=== PATIENT | female | born 1995 | race Hispanic/Latino ===

== ENCOUNTER 2017-12-28 23:17 | Emergency (ER) | payer MEDICAID ==
[2017-12-28 23:55] LABS: BASOPHILS % (AUTO) 0.7 % (0.0-5.0); HEMATOCRIT 42.7 % (36-48); LYMPHOCYTES % (AUTO) 22.9 % (21.0-51.0); MEAN CORPUSCULAR HEMOGLOBIN 29.8 pg (27.0-33.0); MEAN CORPUSCULAR HGB CONC 33.8 g/dL (32.0-36.0); MONOCYTES % (AUTO) 9.7 % (3.0-13.0); NEUTROPHILS % (AUTO) 65.7 % (40.0-77.0); PLATELET COUNT (AUTO) 358 K/uL (130-400); RED BLOOD CELL COUNT(AUTO) 4.86 MIL/uL (4.00-5.50); RED CELL DISTRIBUTION WIDTH 13.6 % (11.0-15.5); WHITE BLOOD COUNT (AUTO) 13.7 K/uL (4.8-10.8)
== END 2017-12-29 01:56 | disposition home or self-care (01) ==
LOC: EDH 23:17
DX: O20.0 Threatened abortion (principal); Z3A.10 10 weeks gestation of pregnancy
CPT/HCPCS: 36415; 76801; 85025; 86850; 86900; 86901

== ENCOUNTER 2018-01-05 06:03 | Day surgery (SDC) | payer MEDICAID ==
[2018-01-04 13:00] VITALS: BP 109/69
[2018-01-04 13:08] LABS: BASOPHILS % (AUTO) 0.3 % (0.0-5.0); EOSINOPHILS % (AUTO) 0.6 % (0.0-8.0); HEMATOCRIT 42.9 % (36-48); LYMPHOCYTES % (AUTO) 15.6 % (21.0-51.0); MEAN CORPUSCULAR HEMOGLOBIN 30.3 pg (27.0-33.0); MEAN CORPUSCULAR HGB CONC 34.7 g/dL (32.0-36.0); MEAN CORPUSCULAR VOLUME 87.3 fL (80-100); MONOCYTES % (AUTO) 4.4 % (3.0-13.0); NEUTROPHILS % (AUTO) 79.1 % (40.0-77.0); PLATELET COUNT (AUTO) 362 K/uL (130-400); RED BLOOD CELL COUNT(AUTO) 4.91 MIL/uL (4.00-5.50); RED CELL DISTRIBUTION WIDTH 13.6 % (11.0-15.5); WHITE BLOOD COUNT (AUTO) 11.3 K/uL (4.8-10.8)
[~2018-01-05] VITALS: Ht 162.6 cm; Wt 70.9 kg
[2018-01-05 06:19] VITALS: BP 124/66
[2018-01-05] MEDS: LACTATED RINGERS 1000ML 1,000 ML IV ONE (06:48)
[2018-01-05] MEDS ORDERED: LIDOCAINE PF 2% 5ML ABBOJECT ONE (07:53)
[2018-01-05] MEDS ORDERED: ONDANSETRON HCL 4 MG/2 ML VIAL ONE (07:53)
[2018-01-05] MEDS ORDERED: DEXAMETHASONE SOD PHOSPHATE 10MG/ML 1ML VIAL ONE (07:53)
[2018-01-05] MEDS ORDERED: GLYCOPYRROLATE 0.2 MG/ML 5 ML VIAL ONE (07:53)
[2018-01-05] MEDS ORDERED: MIDAZOLAM HCL 1 MG/ML 2ML VIAL ONE (07:54)
[2018-01-05] MEDS ORDERED: PROPOFOL 10 MG/ML 20ML VIAL IV ONE (07:54)
[2018-01-05] MEDS ORDERED: FENTANYL CITRATE PF 50 MCG/1 ML 2ML VIAL ONE (07:55)
[2018-01-05] MEDS ORDERED: OXYTOCIN 10 UNIT/1ML 10ML VIAL ONE (08:19)
[2018-01-05 09:30] VITALS: BP 111/65
[2018-01-05 09:45] VITALS: BP 112/73
[2018-01-05 10:00] VITALS: BP 124/64
== END 2018-01-05 10:17 | disposition home or self-care (01) ==
LOC: DAH 06:03
PROVIDERS: ATTEND Obstetrics & Gynecology
DX: O03.4 Incomplete spontaneous abortion without complication (principal)
CPT/HCPCS: 36415; 59812; 85025; 86850; 86900; 86901; 88304; A4510; A4600; A4606; J1100; J2001; J2250; J2405; J2590; J2704; J3010; J3490; J7120 ×2

== ENCOUNTER 2020-06-05 10:40 | Emergency (ER) | payer MEDICAID, OTHER ==
[2020-06-05] MEDS ORDERED: LIDOCAINE HCL-MPF 1% 2ML VIAL ONE (10:48)
[2020-06-05] MEDS ORDERED: CEFTRIAXONE SODIUM 500 MG VIAL ONE (10:48)
[2020-06-05] MEDS ORDERED: AZITHROMYCIN 250 MG TABLET PO ONE (10:49)
== END 2020-06-05 11:01 | disposition home or self-care (01) ==
LOC: EDH 10:40
DX: R30.0 Dysuria (principal); Z20.2 Contact with and (suspected) exposure to infections with a predominantly sexual mode of transmission
CPT/HCPCS: 96372; 99283; J0696; J3490

== ENCOUNTER 2020-06-23 12:59 | Emergency (ER) | payer SELFPAY ==
[2020-06-23 14:11] LABS: BASOPHILS % (AUTO) 0.4 % (0.0-5.0); HEMATOCRIT 42.6 % (36-48); LYMPHOCYTES % (AUTO) 22.4 % (21.0-51.0); MEAN CORPUSCULAR HEMOGLOBIN 28.7 pg (27.0-33.0); MEAN CORPUSCULAR HGB CONC 33.8 g/dL (32.0-36.0); MEAN CORPUSCULAR VOLUME 84.9 fL (79-99); MONOCYTES % (AUTO) 6.2 % (3.0-13.0); NEUTROPHILS % (AUTO) 69.8 % (40.0-77.0); PLATELET COUNT (AUTO) 304 K/uL (130-400); RED BLOOD CELL COUNT(AUTO) 5.02 MIL/uL (4.00-5.50); RED CELL DISTRIBUTION WIDTH 13.5 % (11.0-15.5); WHITE BLOOD COUNT (AUTO) 10.6 K/uL (4.8-10.8)
[2020-06-23 14:12] LABS: APPEARANCE,URINE Clear (CLEAR); BILIRUBIN,URINE Negative (NEGATIVE); COLOR,URINE Yellow (YELLOW); GLUCOSE, URINE (UA) Negative (NEGATIVE); KETONES,URINE Negative (NEGATIVE); LEUKOCYTE ESTERASE ,URINE Trace (NEGATIVE); NITRATE,URINE Negative (NEGATIVE); OCCULT BLOOD,URINE Small (NEGATIVE); PH,URINE 6.5 (5.0-8.0); PROTEIN,URINE Negative (NEGATIVE); UROBILINOGEN,URINE 0.2 mg/dL (0.2-1.0)
[2020-06-23 14:14] LABS: HCG,QUAL RESULT NEGATIVE (NEGATIVE)
[2020-06-23 14:21] LABS: CREATININE 0.8 mg/dL (0.5-1.5); POTASSIUM 3.8 mmol/L (3.5-5.1)
[2020-06-23 14:28] LABS: BACTERIA,URINE Rare /HPF (None Seen); RBC,URINE 0-1 /HPF (0-1); SQUAMOUS EPITHELIAL CELL,UR Rare /HPF (0-2)
[2020-06-23 14:31] LABS: ALBUMIN 3.6 g/dL (3.5-5.0); BILIRUBIN,TOTAL 0.4 mg/dL (0.2-1.0); TOTAL PROTEIN, SERUM 7.1 g/dL (6.0-8.3)
== END 2020-06-23 16:30 | disposition home or self-care (01) ==
LOC: EDH 12:59
DX: O23.41 Unspecified infection of urinary tract in pregnancy, first trimester (principal); Z3A.01 Less than 8 weeks gestation of pregnancy
CPT/HCPCS: 36415; 76856; 80053; 81001; 81025; 84702; 85025; 87077; 87088; 87186